=== PATIENT | female | born 1965 | race Caucasian/White ===

== ENCOUNTER 2018-01-27 07:53 | Day surgery (SDC) | payer OTHER, SELFPAY ==
[2018-01-27 08:51] VITALS: BP 134/97; PULSE 60; RESP 18; TEMP 36.4; O2SAT 100; BMI 29.5
[2018-01-27] MEDS: Ciprofloxacin 400 MG/200 ML BAG 200 MG IV (09:34)
--- NOTE | 2018-01-27 10:15 | DCINST_ITS ---
Discharge Diet: Light diet - advance as tolerated Discharge Activity: Return to Normal Activity Call your doctor if you observe: Fever of 101 or Higher Allergies/Adverse Reactions: Allergies Penicillins Allergy (Verified 01/27/18 08:23) Anaphylaxis Medications to take at Discharge Ciprofloxacin [Cipro] 500 mg PO BID #6 tab 01/27/18 Ciprofloxacin [Cipro] 500 mg PO DAILY 01/27/18 Docusate Sodium [Colace] 100 mg PO BID #20 cap 01/27/18 Hydrocodone/Acetaminophen [[place] 5-325 Tablet] 1 ea PO Q4H PRN PRN 5 Days #20 tab 01/27/18 Tamsulosin HCl [Flomax] 0.4 mg PO DAILY 01/27/18 Vicodin 5-300 mg Tablet 5 - 300 mg PO 4X/DAY PRN PRN 01/27/18 The following prescriptions were given: Hydrocodone/Acetaminophen [[place] 5-325 Tablet] 1 ea PO Q4H PRN PRN 5 Days #20 tab PRN Reason: Pain Ciprofloxacin [Cipro] 500 mg PO BID #6 tab Docusate Sodium [Colace] 100 mg PO BID #20 cap Primary Care Physician: Manfred Freeman DO [Primary Care Provider] - Please Follow Up With: Giovanni Martinez MD When: you have surgery next week.
--- NOTE | 2018-01-27 11:10 | OP.PCM_ITS ---
Report of Operation Date of Procedure: 01/27/18 Pre-Operative Diagnosis: Right ureteral calculi right renal calculi, with obstruction, left ureteral calculi and left renal calculi with obstruction. Post-Operative Diagnosis: Same Surgery/Procedure Performed:: Cystoscopy left retrograde pyelogram and left stent placement, cystoscopy right retrograde pyelogram, right ureteroscopy laser lithotripsy of stones, and right stent placement. Description of Surgical Findings:: 52-year-old female history of recurrent kidney stone disease presented to my office with severe right flank pain from a large stone in distal right ureter. She also has multiple stones in the left ureter and multiple stones in both kidneys so today plan surgery to place a stent on the left side to let this dilate and will treat this at a different setting. Today we will proceed with right ureteroscopy laser of stones and right stent placement. Procedure note patient was taken back to the operating room at the smooth induction of general anesthesia she was placed supine on the table, I then prepped the urethra and vaginal area in the usual sterile fashion, went into the bladder with a 21 Pakistani rigid cystourethroscope, cannulated the left ureteral orifice with a Glidewire and a Pollack catheter, performed a retrograde pyelogram, advanced the wire all the way up to the kidney, and then advanced a stent on the left side all the way to the kidney, the stent met the multiple stones in the ureter he did require a little bit of force to wash the stent up into the left kidney once is able to get the stent past the stones in the left kidney I pulled the wire the stent coiled in the kidney bladder in good position. I then went to the right side cannulated the right ureteral orifice with a Glidewire, performed a retrograde pyelogram, I then went up with the semirigid ureteroscope and the distal stone had been passed. So then I went up with a flexible ureteroscope and went up to the kidney and went to the upper pole and found some stones in the upper pole calyx laser these out some tonsils of the upper upper pole midpole calyx and laser these out found some small stones in the midpole calyx laser these out and some stones in the midpole lower lower pole calyx and laser these out and finally went to the lower pole calyx and laser these out some of the stones were free-floating in the calyx some of the stones were attached to the papilla tissue were lasered free so that they can pass. All the stone fragments were then free-floating no significant fragments were seen and then worked my way down the ureter next to the stent then advanced a wire over the stent and placed a stent on the right side once a stent coiled in good position we left the stent then drained the bladder patient's anesthetic was reversed next week she will come back for surgery will remove the stent on the right and then proceed with surgery on the left side. Type of Anesthesia:: General Drains: b/l stents - Admit VTE Documentation VTE Present on Admission: No VTE Mechan Device Prophylaxis: SCD's VTE Pharm Prophylaxis ordered?: No Reason prophylaxis not ordered:: Treatment Not Indicated
[2018-01-27 11:13] VITALS: BP 121/78; BP 134/97; PULSE 92; RESP 16; TEMP 36.1; O2SAT 95
[2018-01-27 11:30] VITALS: BP 117/73; BP 134/97; PULSE 85; RESP 16; O2SAT 93
[2018-01-27 11:45] VITALS: BP 113/78; BP 134/97; PULSE 70; RESP 16; TEMP 36.3; O2SAT 98
[2018-01-27 12:54] VITALS: BP 134/97
== END 2018-01-27 12:57 | disposition home or self-care (01) ==
LOC: SDC 07:58 → AC 08:00
PROVIDERS: Family Provider Preventive Medicine Occupational Medicine; PCP Preventive Medicine Occupational Medicine; Visit Provider Urology
PROC: 0TJ98ZZ Inspection of Ureter, Via Natural or Artificial Opening Endoscopic (ICD-10-PCS; CPT 52352; principal; 2018-01-27 09:50)
DX: N13.2 Hydronephrosis with renal and ureteral calculous obstruction (principal); Z79.899 Other long term (current) drug therapy; K21.9 Gastro-esophageal reflux disease without esophagitis; M19.90 Unspecified osteoarthritis, unspecified site; Z87.891 Personal history of nicotine dependence; Z86.19 Personal history of other infectious and parasitic diseases
CPT/HCPCS: 00918; 52332; 52356; 76000; J7120; C1769; C2617; J0744

== ENCOUNTER 2018-02-05 11:16 | Day surgery (SDC) | payer OTHER, SELFPAY ==
[2018-02-05 11:53] VITALS: BP 124/76; PULSE 65; RESP 14; TEMP 36.4; O2SAT 96; BMI 26.6
[2018-02-05] MEDS: Ciprofloxacin 400 MG/200 ML BAG 200 MG IV (12:18)
--- NOTE | 2018-02-05 15:35 | PCM.DC.URO ---
Discharge Diet: Light diet - advance as tolerated Discharge Activity: Return to Normal Activity, No Restrictions, May not drive while taking narcotic pain medications., May Shower Call your doctor if your incision/area has: Continuous Slow Oozing, Sudden Increased Bleeding, Increased Pain/ Swelling, Increased Redness, Foul Smelling Discharge, Swelling at the incision site Call your doctor if you observe: Fever of 101 or Higher Suture Line Care: Avoid Pulling/Pushing, Avoid Pinching/Bending Instructions: Treating Kidney Stones: Ureteroscopic Stone Removal Allergies/Adverse Reactions: Allergies Penicillins Allergy (Verified 02/03/18 10:43) Anaphylaxis Medications to take at Discharge Ciprofloxacin [Cipro] 500 mg PO DAILY 01/27/18 Orders to be completed after discharge: Abdomen Single View [RAD] Time Frame: 1 Week, Location: None Selected Primary Care Physician: Manfred Freeman DO [Primary Care Provider] - Please Follow Up With: Giovanni Martinez MD When: at 2:30 pm
--- NOTE | 2018-02-05 15:39 | PCM.OPRPT ---
Report of Operation Date of Procedure: 02/05/18 Pre-Operative Diagnosis: Left ureteral calculi multiple and right renal calculi very large Post-Operative Diagnosis: Same Surgery/Procedure Performed:: Cystoscopy and removal right stent, left retrograde pyelogram, left ureteroscopy laser of stones along the left ureter and vascular fragments, laser of stone up in the right kidney, complicated and large, placement of a left stent Description of Surgical Findings:: 52-year-old female who is status post lasering of stones in the right kidney now presents for removal of the right stent and regular laser now the stones in the left kidney she has a significant amount of stone debris and stones along the course of the ureter which can clear out today and also she has a 2 cm stone in the right renal pelvis which are also in the laser. She understands that this is quite a significant amount of stones we reviewed the complications associated with surgery possibility she may need more than one procedure is likely. 52-year-old female taken back to the operating room after smooth induction of general anesthesia she was placed in dorsal lithotomy position. I went into the bladder with a 21 Nepalese rigid cystourethroscope, grabbed the existing stent from the right side and pulled out very gently, I then went to the left side and grabbed the existing stent pulled out the meatus and along the stent advanced a wire up in the left kidney left the wire in place, and then over the wire and next to the wire I went in with a SlimLine ureteroscope I encountered the first stone this is laser little pieces and then use a basket nitinol and engage basket to basket out the fragments that I went up further and lasered another stone along the ureter and basket out the fragments then I went to the proximal ureter lasered 3 large stones in the proximal ureter and fax it out the fragments and finally I got up to the renal pelvis I left the safety wire in place of the safety wire and then put in the axis sheath once the new of the stones were out of the ureter and then through the access sheath and went in with the flexible ureteroscope and I lasered first stones in the upper pole midpole and then came back and laser the stone in the renal pelvis that was very large about 2 cm into little tiny pieces at the end I created at the 3 of multiple small pockets of stones in the calyces finally got these all down into little pieces. At this point visualization was getting more difficult after an hour and a half of lasering decided to place a stent and probably will need to finish up the remaining low fragments with shockwave lithotripsy. Through the existing access sheath pulled out the ureteroscope advanced a wire position the stent on the left side once a stent was in good position the the left kidney down to the bladder drain the bladder anesthesia was reversed and the patient was taken back to the PACU in good condition plan to see her next week with a KUB and most likely she will need shockwave lithotripsy to finish up the stones in the left kidney. Very large stone in the left kidney multiple stones along the course of the left ureter again explained to the patient very likely will need more than one procedure to clear this out, spent over 2 hours in surgery laser of the stones. I will see her next week with a KUB. Type of Anesthesia:: General Drains: stent - Admit VTE Documentation VTE Present on Admission: No VTE Mechan Device Prophylaxis: SCD's VTE Pharm Prophylaxis ordered?: No Reason prophylaxis not ordered:: Treatment Not Indicated
[2018-02-05 15:45] VITALS: BP 124/76; BP 127/97; PULSE 91; RESP 16; TEMP 36; O2SAT 98
[2018-02-05 16:00] VITALS: BP 124/76; BP 134/83; PULSE 67; RESP 16; O2SAT 97
[2018-02-05 16:15] VITALS: BP 122/76; BP 124/76; PULSE 68; RESP 16; TEMP 36.3; O2SAT 100
[2018-02-05 16:48] VITALS: BP 124/76
== END 2018-02-05 16:57 | disposition home or self-care (01) ==
LOC: SDC 11:17 → AC 11:18
PROVIDERS: Family Provider Preventive Medicine Occupational Medicine; PCP Preventive Medicine Occupational Medicine; Visit Provider Urology
PROC: 0TJ98ZZ Inspection of Ureter, Via Natural or Artificial Opening Endoscopic (ICD-10-PCS; CPT 52352; principal; 2018-02-05 12:55)
DX: N13.2 Hydronephrosis with renal and ureteral calculous obstruction (principal); B19.20 Unspecified viral hepatitis C without hepatic coma; Z87.891 Personal history of nicotine dependence; K21.9 Gastro-esophageal reflux disease without esophagitis; Z79.899 Other long term (current) drug therapy; M19.90 Unspecified osteoarthritis, unspecified site
CPT/HCPCS: 00918; 52353; 52356; 76000; J7120; C1769; C2617; J0744; J2405

== ENCOUNTER → 2018-02-09 15:28 | Outpatient (CLI) | payer OTHER, SELFPAY | PROVIDERS: Family Provider Preventive Medicine Occupational Medicine; PCP Preventive Medicine Occupational Medicine; Visit Provider Urology | DX: N20.0 Calculus of kidney (principal) ==

== ENCOUNTER → 2018-02-11 14:43 | Outpatient (CLI) | payer OTHER, SELFPAY ==
--- NOTE | 2018-02-11 14:55 | RAD_ITS ---
STUDY: X-RAY - ABDOMEN/PELVIS REASON FOR EXAM: Female, 52 years old. History of kidney stones. TECHNIQUE: Two AP supine views of the abdomen and pelvis. COMPARISON: None. FINDINGS: Normal visualized lung bases. There is a moderate amount of colonic fecal material. A left-sided double-J stent catheter is seen with the proximal tip in the upper pole calyx of the left kidney and distal tip in the left side of the bladder. Multiple calcific densities are seen in the left kidney. The largest measures 4.3 mm and is in the mid upper pole. Multiple tiny intrarenal calcifications are seen in the right kidney the largest measures 3 mm and is in the lower pole. Evidence of prior bilateral tubal ligation. Normal visualized osseous structures. RAD/Abdomen Single View IMPRESSION: Status post left double-J stent catheter placement. Multiple bilateral nephrolithiasis. Electronically Signed: Shantanu Gonzales MD at 8:06 EDT Tel [phone], Service support ,
== END ==
PROVIDERS: Family Provider Preventive Medicine Occupational Medicine; PCP Preventive Medicine Occupational Medicine; Visit Provider Nurse Practitioner Adult Health
DX: N20.0 Calculus of kidney (principal)
CPT/HCPCS: 74018

== ENCOUNTER 2018-02-17 09:52 | Day surgery (SDC) | payer OTHER, SELFPAY ==
--- NOTE | 2018-02-17 09:52 | DT_ITS ---
This patient was seen during an EMR downtime February 15, 2018 - February 22, 2018. This patient may have a combination of paper and electronic documentation or all paper documentation. All documentation is viewable within the e-chart portion of [email or web address] for each patient visit.
== END 2018-02-17 14:40 | disposition home or self-care (01) ==
PROVIDERS: Family Provider Preventive Medicine Occupational Medicine; PCP Preventive Medicine Occupational Medicine; Visit Provider Urology
PROC: (CPT 50590; principal; 2018-02-17 12:50)
DX: N20.0 Calculus of kidney (principal); Z87.891 Personal history of nicotine dependence; K21.9 Gastro-esophageal reflux disease without esophagitis; Z86.19 Personal history of other infectious and parasitic diseases; M19.90 Unspecified osteoarthritis, unspecified site
CPT/HCPCS: 00873; 50590; J7120; J2405

== ENCOUNTER → 2018-02-25 08:06 | Outpatient (CLI) | payer OTHER, SELFPAY ==
--- NOTE | 2018-02-25 08:45 | RAD_ITS ---
STUDY: X-RAY - ABDOMEN/PELVIS REASON FOR EXAM: Female, 52 years old. Flank pain TECHNIQUE: Two AP supine views of the abdomen and pelvis. COMPARISON: 02/11/2018 FINDINGS: Stable appearance of the left-sided JJ stent. Previously described calcifications overlying both renal shadows are essentially unchanged in appearance from the previous study. No calcifications are noted along the course of the stent. There has been previous tubal ligation. There is an unremarkable bowel gas pattern. There is no demonstrated free abdominal air. The visualized liver, spleen and kidneys are grossly normal in size and morphology. Normal soft tissue structures. Normal visualized osseous structures. RAD/Abdomen Single View IMPRESSION: No interval change since the previous study Electronically Signed: Kennedy Hall MD at 10:25 EDT , Service support ,
== END ==
PROVIDERS: Family Provider Preventive Medicine Occupational Medicine; PCP Preventive Medicine Occupational Medicine; Visit Provider Urology
DX: N20.0 Calculus of kidney (principal)
CPT/HCPCS: 74018

== ENCOUNTER → 2019-05-24 15:37 | Outpatient (CLI) | payer OTHER, SELFPAY ==
--- NOTE | 2019-05-24 | IMM_PTH ---
PATIENT: AMAURY YANES LOC: [facility] U#:[id number] AGE/SX: 59/F ROOM: RE05/24/[address]: Dr. Meek No MD : 1965 BED: DIS: SPEC #: [id number] RECD: 05/25/19 12:42 STATUS: DONNA REJen #: [id number] DANIEL: 05/24/19 00:[address]: Meek No DEPT: IMMUNOHISTOCHEMISTRY RECD BY: Winsome Enriquez ENTERED: 05/25/19 12:43 SP TYPE: IMMUNO OTHR DR: Dr. Manfred Freeman DO Tissues: B - Stomach, NOS Procedures: H Pylori (initial) PHYSICIAN & INSTITUTION [place] [address] SPECIMEN INFORMATION: Tissue Source: B - Antrum biopsy Clinical Info: Z86.010, K21.0 Specimen Number: [id number] CPT code: 54152 METHODOLOGY: Deparaffinized sections of prefer/formalin-fixed tissue or PAP/DQ stained slides are incubated with monoclonal/polyclonal antibodies/oligonucleotide probes. Localization is made via biotin free immunoperoxidase method. Appropriate controls are performed and reacted as expected. Results on target cell population are indicated in the following table: RESULTS: ANTIBODY / CLONE RESULT Block B H Pylori (polyclonal) negative These tests were developed and their performance characteristics determined by [facility]. They may not have been cleared or approved by the U.S. Food and Drug Administration. The FDA has determined that such clearance or approval is not necessary. INTERPRETATION: B. Antrum, biopsy: Negative for Helicobacter pylori organisms. SJ:xin 05/26/19
--- NOTE | 2019-05-24 06:55 | EGD_PTH ---
PATIENT: AMAURY YANES LOC: [facility] U#:[id number] AGE/SX: 59/F ROOM: RE05/24/[address]: Dr. Meek No MD : 1965 BED: DIS: SPEC #: [id number] RECD: 05/24/19 15:04 STATUS: DONNA CECIL #: [id number] DANIEL: 05/24/19 06:[address]: Meek No DEPT: SURGICAL PATHOLOGY RECD BY: Joshua Anderson ENTERED: 05/25/19 10:02 SP TYPE: EGD BIOPSY OTHR DR: Dr. Manfred Freeman DO Tissues: A - Duodenum, NOS B - Gastric mucous membrane C - Gastric mucous membrane D - Esophageal mucous membrane Procedures: Special Stain Group II Surgery Specimen Level IV Alcian Blue/PAS (control) HEADER OPERATION: EGD with biopsy and colonoscopy PRE-OP DIAGNOSIS: Z86.010, K21.0 TISSUE SUBMITTED: A - Duodenum biopsy, B - Antral biopsy H/H, C - Gastric polyp, D - Distal esophagea biopsy MICROSCOPIC DIAGNOSIS A. Duodenum, biopsy: A fragment of duodenal mucosa, no pathologic diagnosis. B. Antral biopsy: Mild gastritis. See microscopic description and comment. C. Gastric polyp, biopsy: Fragments of gastric mucosa with mild chronic inflammation and focal intestinal metaplasia. See comment. D. Distal esophageal biopsy: Fragments of squamous epithelium with minimal chronic inflammation and congestion. SJ:xin 05/26/19 COMMENT B. The results of immunohistochemistry for Helicobacter pylori will be reported separately ([id number]). C. Alcian blue/PAS stain with matched control is used in the evaluation of the specimen. Obvious polyp-related changes are not identified. Case has been reviewed in consultation with Dr. Tellez who concurs with the above diagnosis. IDC:AM MICROSCOPIC DESCRIPTION Slides are reviewed. B. The specimen shows fragments of gastric mucosa with chronic inflammatory cell infiltrates in the lamina propria consisting of lymphocytes and plasma cells, consistent with mild chronic gastritis. GROSS DESCRIPTION A - Received in fixative is one container labeled with the patient's name and designated duodenum biopsy. The specimen consists of one irregular fragment of light [place]عل[place] soft tissue that measures 0.4 x 0.3 x 0.1 cm. The specimen is totally submitted in one cassette. B - Received in fixative is one container labeled with the patient's name and designated antral biopsy H/H. The specimen consists of one irregular fragment of light [place]عل[place] soft tissue that measures 0.3 x 0.3 x 0.1 cm. The specimen is totally submitted in one cassette. C - Received in fixative is one container labeled with the patient's name and designated gastric polyp. The specimen consists of two irregular fragments of light [place]عل[place] soft tissue that in aggregate measure 0.6 x 0.3 x 0.1 cm. The specimen is totally submitted in one cassette. D - Received in fixative is one container labeled with the patient's name and designated distal esophageal biopsy. The specimen consists of two irregular fragments of light العلي soft tissue that in aggregate measure 0.6 x 0.5 x 0.1 cm. The specimen is totally submitted in one cassette. / SJ:rg 05/25/19 TC:3 CPT: 84495 x4, [id number]
== END ==
PROVIDERS: Family Provider Preventive Medicine Occupational Medicine; PCP Preventive Medicine Occupational Medicine; Referring Provider Surgery; Visit Provider Surgery
DX: K29.70 Gastritis, unspecified, without bleeding (principal); K21.0 Gastro-esophageal reflux disease with esophagitis; Z86.010 Personal history of colon polyps
CPT/HCPCS: 88305; 88313; 88342